=== PATIENT | female | born 1960 | race Caucasian/White ===

== ENCOUNTER 2024-08-06 15:02 | Emergency (ER) | payer BC ==
[~2024-08-06] VITALS: Ht 170.2 cm; Wt 70.0 kg
[2024-08-06] MEDS: KETOROLAC 30MG/ML VIAL IM ONE (16:14)
[2024-08-06] MEDS: HYDROCODONE/ACETAMINOPHEN 5/325MG TABLET PO ONE (16:15)
[2024-08-06] MEDS: ONDANSETRON HCL 4MG/2ML INJ IM ONE (16:35)
[2024-08-06 18:07] VITALS: O2SAT 99
[2024-08-06] MEDS: FENTANYL CITRATE/PF 50MCG/ML 2ML VIAL IV ONE (19:45)
[2024-08-06] MEDS: PROPOFOL 200MG/20ML VIAL IV ONE (19:50)
[2024-08-06 21:48] VITALS: BP 126/78; PULSE 86; RESP 16; TEMP 36.7; O2SAT 99
== END 2024-08-06 22:00 | disposition home or self-care (01) ==
LOC: ER 15:02
DX: S43.014A Anterior dislocation of right humerus, initial encounter (principal); W10.0XXA Fall (on)(from) escalator, initial encounter; J45.909 Unspecified asthma, uncomplicated; Y93.89 Activity, other specified; Y92.520 Airport as the place of occurrence of the external cause; Y99.8 Other external cause status
CPT/HCPCS: 73030; 73060; 73070; 73080; 23650; 96372; 99152; 99285; J3010; J1885; J2405; J2704; Z7610 ×2; A4565